=== PATIENT | female | born 1970 | race Caucasian/White ===

== ENCOUNTER 2022-10-03 06:27 | Observation (INO) | payer BC ==
[2022-10-03] MEDS ORDERED: SODIUM CHLORIDE 0.9% 1,000 ML IV STA (06:44)
[2022-10-03] MEDS ORDERED: MORPHINE SULFATE 4 MG/ML SYRINGE IV STA (06:44)
[2022-10-03] MEDS ORDERED: ONDANSETRON 4 MG/2 ML VIAL IVP STA (06:44)
[2022-10-03 07:17] LABS: Basophils % (A) 0 %; Eosinophils # (A) 0.2 k/uL (0-0.7); Eosinophils % (A) 2 %; HCT 44.1 % (34.0-46.0); HGB 14.5 gm/dL (11.4-16.0); Lymphocytes % (A) 8 %; MCH 31.4 pg (25.0-35.0); MCHC 32.8 g/dL (31.0-37.0); MCV 95.7 fL (80.0-100.0); Mean Platelet Volume 7.6; Monocytes # (A) 0.4 k/uL (0-1.0); Monocytes % (A) 3 %; Neutrophils # (A) 11.4 k/uL (1.3-7.7); Neutrophils % (A) 87 %; Platelet Count 343 k/uL (150-450); RBC 4.61 m/uL (3.80-5.40); RDW 12.3 % (11.5-15.5)
[2022-10-03 07:29] LABS: ALT 47 U/L (4-34); AST 30 U/L (14-36); African American GFR (CKD) >90 (>60 ml/min/1.73 sqM); Albumin 4.1 g/dL (3.5-5.0); Alkaline Phosphatase 97 U/L (38-126); Amylase 48 U/L (30-110); Anion Gap 9 mmol/L; Blood Urea Nitrogen 8 mg/dL (7-17); Carbon Dioxide 28 mmol/L (22-30); Chloride 103 mmol/L (98-107); Glucose 138 mg/dL (74-99); Lipase 42 U/L (23-300); Non-African American GFR(CKD) >90 (>60 ml/min/1.73 sqM); Potassium 4.3 mmol/L (3.5-5.1); Sodium 140 mmol/L (137-145); Total Bilirubin 0.8 mg/dL (0.2-1.3); Total Protein 6.7 g/dL (6.3-8.2)
[2022-10-03 08:08] LABS: Appearance,Urine Clear (Clear); Bacteria,Urine Rare /hpf; Bilirubin,Urine Negative (Negative); Blood,Urine Negative (Negative); Color,Urine Yellow; Glucose,Urine (UA) Negative (Negative); Ketones,Urine 1+ (Negative); Leukocyte Esterase,Urine Negative (Negative); Mucus,Urine Rare /hpf; Nitrite,Urine Negative (Negative); Protein,Urine 1+ (Negative); RBC,Urine 5 /hpf (0-5); Specific Gravity,Urine 1.029 (1.001-1.035); Squamous Epithelial Cell,Urine 3 /hpf (0-4); Urobilinogen,Urine <2.0 mg/dL (<2.0); WBC,Urine 1 /hpf (0-5)
--- NOTE | 2022-10-03 08:15 | ED ---
General Adult HPI - General Chief complaint: Abdominal Pain Stated complaint: abd pain Time Seen by Provider: 10/03/22 06:35 Source: patient, RN notes reviewed Mode of arrival: ambulatory Limitations: no limitations - History of Present Illness Initial comments: 51-year-old female with a past medical history of hypertension presents to the emergency room for abdominal pain. Patient reports this started yesterday. Patient states it is in her mid upper abdomen and also her right lower quadrant. Patient reports that the pain has been constant. She has had some nausea and vomiting from this. She denies any diarrhea. Patient did take Motrin last night without relief. Patient denies any previous abdominal surgeries.Patient has no other complaints at this time including shortness of breath, chest pain, headache, or visual changes. - Related Data Home Medications Medication Instructions Recorded Confirmed Losartan [Cozaar] 50 mg PO DAILY 10/03/22 10/03/22 Allergies Allergy/AdvReac Type Severity Reaction Status Date / Time diphenhydramine AdvReac See comment Verified 10/03/22 09:24 [From Benadryl] Penicillins AdvReac See comment Verified 10/03/22 09:24 Review of Systems ROS Statement: Those systems with pertinent positive or pertinent negative responses have been documented in the HPI. ROS Other: All systems not noted in ROS Statement are negative. Past Medical History Past Medical History: Hypertension History of Any Multi-Drug Resistant Organisms: None Reported Past Surgical History: No Surgical Hx Reported Past Psychological History: No Psychological Hx Reported Smoking Status: Never smoker Past Alcohol Use History: Daily Past Drug Use History: None Reported General Exam Limitations: no limitations General appearance: alert, in no apparent distress Head exam: Present: atraumatic Eye exam: Present: normal appearance, PERRL, EOMI. Absent: scleral icterus, conjunctival injection ENT exam: Present: normal exam, mucous membranes moist Neck exam: Present: normal inspection, full ROM Respiratory exam: Present: normal lung sounds bilaterally. Absent: respiratory distress, wheezes Cardiovascular Exam: Present: regular rate, normal rhythm GI/Abdominal exam: Present: soft, tenderness (Epigastric and right lower quadrant tenderness, negative Chirinos sign. Negative Rovsing sign.), normal bowel sounds. Absent: distended, guarding, rebound, rigid Neurological exam: Present: alert Course Vital Signs 10/03/22 06:30 Temperature 98.5 F Pulse Rate 91 Respiratory 16 Rate Blood Pressure 120/69 O2 Sat by Pulse 95 Oximetry Medical Decision Making - Medical Decision Making Vitals stable patient afebrile abdominal tenderness noted. CBC showed a white count of 13 with a left shift. CMP is unremarkable. Urinalysis is negative for infection. I read and reviewed the CT. CT abdomen and pelvis does show acute appendicitis with appendicolith. No evidence of perforation or abscess. Patient has severe penicillin ALLERGY, will be started on Levaquin and Flagyl. Patient will be admitted to Dr. Murray. Discussed with Dr Boyer. - Lab Data Result diagrams: 10/03/22 07:07 10/03/22 07:07 Lab Results 10/03/22 10/03/22 10/03/22 Range/Units 07:07 07:07 07:07 WBC 13.0 H (3.8-10.6) k/uL RBC 4.61 (3.80-5.40) m/uL Hgb 14.5 (11.4-16.0) gm/dL Hct 44.1 (34.0-46.0) % MCV 95.7 (80.0-100.0) fL MCH 31.4 (25.0-35.0) pg MCHC 32.8 (31.0-37.0) g/dL RDW 12.3 (11.5-15.5) % Plt Count 343 (150-450) k/uL MPV 7.6 Neutrophils % 87 % Lymphocytes % 8 % Monocytes % 3 % Eosinophils % 2 % Basophils % 0 % Neutrophils # 11.4 H (1.3-7.7) k/uL Lymphocytes # 1.0 (1.0-4.8) k/uL Monocytes # 0.4 (0-1.0) k/uL Eosinophils # 0.2 (0-0.7) k/uL Basophils # 0.0 (0-0.2) k/uL Sodium 140 (137-145) mmol/L Potassium 4.3 (3.5-5.1) mmol/L Chloride 103 (98-107) mmol/L Carbon Dioxide 28 (22-30) mmol/L Anion Gap 9 mmol/L BUN 8 (7-17) mg/dL Creatinine 0.67 (0.52-1.04) mg/dL Est GFR (CKD-EPI)AfAm >90 (>60 ml/min/1.73 sqM) Est GFR (CKD-EPI)NonAf >90 (>60 ml/min/1.73 sqM) Glucose 138 H (74-99) mg/dL Plasma Lactic Acid Zen 1.3 (0.7-2.0) mmol/L Calcium 9.0 (8.4-10.2) mg/dL Total Bilirubin 0.8 (0.2-1.3) mg/dL AST 30 (14-36) U/L ALT 47 H (4-34) U/L Alkaline Phosphatase 97 (38-126) U/L Total Protein 6.7 (6.3-8.2) g/dL Albumin 4.1 (3.5-5.0) g/dL Amylase 48 (30-110) U/L Lipase 42 (23-300) U/L Urine Color Urine Appearance (Clear) Urine pH (5.0-8.0) Ur Specific [place] (1.001-1.035) Urine Protein (Negative) Urine Glucose (UA) (Negative) Urine Ketones (Negative) Urine Blood (Negative) Urine Nitrite (Negative) Urine Bilirubin (Negative) Urine Urobilinogen (<2.0) mg/dL Ur Leukocyte Esterase (Negative) Urine RBC (0-5) /hpf Urine WBC (0-5) /hpf Ur Squamous Epith Cells (0-4) /hpf Urine Bacteria (None) /hpf Urine Mucus (None) /hpf 10/03/22 Range/Units 07:30 WBC (3.8-10.6) k/uL RBC (3.80-5.40) m/uL Hgb (11.4-16.0) gm/dL Hct (34.0-46.0) % MCV (80.0-100.0) fL MCH (25.0-35.0) pg MCHC (31.0-37.0) g/dL RDW (11.5-15.5) % Plt Count (150-450) k/uL MPV Neutrophils % % Lymphocytes % % Monocytes % % Eosinophils % % Basophils % % Neutrophils # (1.3-7.7) k/uL Lymphocytes # (1.0-4.8) k/uL Monocytes # (0-1.0) k/uL Eosinophils # (0-0.7) k/uL Basophils # (0-0.2) k/uL Sodium (137-145) mmol/L Potassium (3.5-5.1) mmol/L Chloride (98-107) mmol/L Carbon Dioxide (22-30) mmol/L Anion Gap mmol/L BUN (7-17) mg/dL Creatinine (0.52-1.04) mg/dL Est GFR (CKD-EPI)AfAm (>60 ml/min/1.73 sqM) Est GFR (CKD-EPI)NonAf (>60 ml/min/1.73 sqM) Glucose (74-99) mg/dL Plasma Lactic Acid Zen (0.7-2.0) mmol/L Calcium (8.4-10.2) mg/dL Total Bilirubin (0.2-1.3) mg/dL AST (14-36) U/L ALT (4-34) U/L Alkaline Phosphatase (38-126) U/L Total Protein (6.3-8.2) g/dL Albumin (3.5-5.0) g/dL Amylase (30-110) U/L Lipase (23-300) U/L Urine Color Yellow Urine Appearance Clear (Clear) Urine pH 8.0 (5.0-8.0) Ur Specific [place] 1.029 (1.001-1.035) Urine Protein 1+ H (Negative) Urine Glucose (UA) Negative (Negative) Urine Ketones 1+ H (Negative) Urine Blood Negative (Negative) Urine Nitrite Negative (Negative) Urine Bilirubin Negative (Negative) Urine Urobilinogen <2.0 (<2.0) mg/dL Ur Leukocyte Esterase Negative (Negative) Urine RBC 5 (0-5) /hpf Urine WBC 1 (0-5) /hpf Ur Squamous Epith Cells 3 (0-4) /hpf Urine Bacteria Rare H (None) /hpf Urine Mucus Rare H (None) /hpf Disposition Clinical Impression: Acute appendicitis, Leukocytosis Disposition: ADMITTED IP TO THIS HOSP Is patient prescribed a controlled substance at d/c from ED?: No Time of Disposition: 09:00
--- NOTE | 2022-10-03 08:38 | CT ---
EXAMINATION TYPE: CT abdomen pelvis w con DATE OF EXAM: 10/03/2022 COMPARISON: None HISTORY: Pain, more on the right, nausea and vomiting CT DLP: 1797.1 mGycm CONTRAST: CT scan of the abdomen and pelvis is performed without Oral Contrast and with IV Contrast, patient in jected with 100 mL of Isovue 300. FINDINGS: LUNG BASES-: No visible nodule. No infiltrate. LIVER/GB: No calcified gallstones. No space occupying hepatic lesion. Biliary tree is of normal ca liber. PANCREAS: No inflammation. No distinct mass. SPLEEN: No splenic enlargement. No lesion seen. ADRENALS: No nodule. No thickening. KIDNEYS/BLADDER: No hydronephrosis. No nephrolithiasis. Simple cyst left kidney. Urinary bladder g rossly unremarkable. BOWEL: Dilated appendix at 1 cm with appendicolith, wall thickening and periappendiceal inflammatory change compatible with acute appendicitis. No evidence for perforation or abscess at this time. Mild small bowel ileus. Small amount of free fluid within the cul-de-sac. Scattered colonic diverticula. GENITAL ORGANS: No gross abnormality. LYMPH NODES: No greater than 1cm abdominal or pelvic lymph nodes are appreciated. AORTA: No significant abnormality. OSSEOUS STRUCTURES: No significant abnormality is seen. OTHER: No significant additional abnormality is seen. IMPRESSION: 1. Findings compatible with acute appendicitis.
[2022-10-03] MEDS ORDERED: LEVOFLOXACIN 500MG-D5W PMX 500 MG in DEXTROSE/WATER 1 100ML.BAG IVPB STA (08:47)
[2022-10-03] MEDS ORDERED: metroNIDAZOLE-NS PMX 500 MG in SALINE 1 100ML.BAG IVPB STA (08:48)
[2022-10-03] MEDS ORDERED: NALOXONE 0.4 MG/ML 1 ML VIAL IV PRN (09:00)
[2022-10-03] MEDS: SODIUM CHLORIDE 0.9% 1,000 ML IV SCH ×2 (10:04→18:10)
[2022-10-03] MEDS ORDERED: diphenhydrAMINE 50 MG/ML 1 ML VIAL IVP STA (11:01)
[2022-10-03] MEDS ORDERED: ACETAMINOPHEN IV (For NPO) 1,000 MG in EMPTY BAG 1 BAG IVPB STA (11:02)
[2022-10-03] MEDS ORDERED: MORPHINE SULFATE 4 MG/ML SYRINGE IVP PRN (11:02)
[2022-10-03] MEDS ORDERED: IV FLUID CONTINUATION 1,000 ML IV ONE (13:45)
[2022-10-03] MEDS ORDERED: HEPARIN SODIUM,PORCINE 5,000 UNIT/ML 1 ML VIAL SQ ONE (13:45)
--- NOTE | 2022-10-03 13:47 | P.GSHP ---
History of Present Illness H&P Date: 10/03/22 51-year-old female presented to the emergency department with complaints of abdominal pain that started yesterday afternoon. She states that the pain was mostly in the right lower quadrant and she initially thought it was gas pain. She tried ibuprofen and hot shower that was unsuccessful. She states that the pain worsened overnight and she presented to the emergency department. She complains of mild nausea and denies any vomiting episodes. She denies any changes in bowel movements. On workup, CT of the abdomen and pelvis was performed and patient was found to have acute appendicitis. Leukocytosis was noted on laboratory work. During her ER visit she is noted to have a mild febrile episode of 100.6. She was started on IV antibiotics with levofloxacin and Flagyl. Patient did have some hives and itching with the levofloxacin service was discontinued. Patient did tolerate Flagyl. - Review of Systems All systems: negative Past Medical History Past Medical History: Hypertension History of Any Multi-Drug Resistant Organisms: None Reported Past Surgical History: No Surgical Hx Reported Past Psychological History: No Psychological Hx Reported Smoking Status: Never smoker Past Alcohol Use History: Daily Past Drug Use History: None Reported Medications and Allergies Home Medications Medication Instructions Recorded Confirmed Type Losartan [Cozaar] 50 mg PO DAILY 10/03/22 10/03/22 History Allergies Allergy/AdvReac Type Severity Reaction Status Date / Time levofloxacin Allergy Rash/Hives Verified 10/03/22 12:21 diphenhydramine AdvReac See comment Verified 10/03/22 09:24 [From Benadryl] Penicillins AdvReac See comment Verified 10/03/22 09:24 Surgical - Exam Osteopathic Statement: *. No significant issues noted on an osteopathic structural exam other than those noted in the History and Physical/Consult. Vital Signs Temp Pulse Resp BP Pulse Ox 98.5 F 91 16 120/69 95 10/03/22 06:30 10/03/22 06:30 10/03/22 06:30 10/03/22 06:30 10/03/22 06:30 - General no distress - Eyes normal ocular movement - ENT no hearing loss - Neck trachea midline - Respiratory normal respiratory effort - Abdomen Soft, tender to palpation in the right lower quadrant, nondistended, no rebound, no guarding - Psychiatric oriented to time, oriented to person, oriented to place Results - Labs 10/03/22 07:07 10/03/22 07:07 Abnormal Lab Results - Last 24 Hours (Table) 10/03/22 10/03/22 10/03/22 Range/Units 07:07 07:07 07:30 WBC 13.0 H (3.8-10.6) k/uL Neutrophils # 11.4 H (1.3-7.7) k/uL Glucose 138 H (74-99) mg/dL ALT 47 H (4-34) U/L Urine Protein 1+ H (Negative) Urine Ketones 1+ H (Negative) Urine Bacteria Rare H (None) /hpf Urine Mucus Rare H (None) /hpf Diabetes panel 10/03/22 Range/Units 07:07 Sodium 140 (137-145) mmol/L Potassium 4.3 (3.5-5.1) mmol/L Chloride 103 (98-107) mmol/L Carbon Dioxide 28 (22-30) mmol/L BUN 8 (7-17) mg/dL Creatinine 0.67 (0.52-1.04) mg/dL Glucose 138 H (74-99) mg/dL Calcium 9.0 (8.4-10.2) mg/dL AST 30 (14-36) U/L ALT 47 H (4-34) U/L Alkaline Phosphatase 97 (38-126) U/L Total Protein 6.7 (6.3-8.2) g/dL Albumin 4.1 (3.5-5.0) g/dL Calcium panel 10/03/22 Range/Units 07:07 Calcium 9.0 (8.4-10.2) mg/dL Albumin 4.1 (3.5-5.0) g/dL Pituitary panel 10/03/22 Range/Units 07:07 Sodium 140 (137-145) mmol/L Potassium 4.3 (3.5-5.1) mmol/L Chloride 103 (98-107) mmol/L Carbon Dioxide 28 (22-30) mmol/L BUN 8 (7-17) mg/dL Creatinine 0.67 (0.52-1.04) mg/dL Glucose 138 H (74-99) mg/dL Calcium 9.0 (8.4-10.2) mg/dL Adrenal panel 10/03/22 Range/Units 07:07 Sodium 140 (137-145) mmol/L Potassium 4.3 (3.5-5.1) mmol/L Chloride 103 (98-107) mmol/L Carbon Dioxide 28 (22-30) mmol/L BUN 8 (7-17) mg/dL Creatinine 0.67 (0.52-1.04) mg/dL Glucose 138 H (74-99) mg/dL Calcium 9.0 (8.4-10.2) mg/dL Total Bilirubin 0.8 (0.2-1.3) mg/dL AST 30 (14-36) U/L ALT 47 H (4-34) U/L Alkaline Phosphatase 97 (38-126) U/L Total Protein 6.7 (6.3-8.2) g/dL Albumin 4.1 (3.5-5.0) g/dL Assessment and Plan Plan: 51-year-old female with acute appendicitis. Patient has been nothing by mouth and started on IV antibiotics. DVT prophylaxis was provided. Plan is for la paroscopic appendectomy, possible open. This was discussed with the patient. Risks, benefits and alternatives were provided. All questions were answered. Further recommendations to be made after procedure is completed.
[2022-10-03] MEDS ORDERED: SUCCINYLCHOLINE CHLORIDE 200 MG/10 ML VIAL IV ONE (13:48)
[2022-10-03] MEDS ORDERED: NEOSTIGMINE 1 MG/ML 10 ML VIAL ONE (13:48)
[2022-10-03] MEDS ORDERED: KETOROLAC 15 MG/ML 1 ML VIAL ONE (13:48)
[2022-10-03] MEDS ORDERED: MIDAZOLAM 2 MG/2 ML VIAL ONE (13:48)
[2022-10-03] MEDS ORDERED: LIDOCAINE 2% INJ 20 MG/ML (2 ML VIAL) ONE (13:48)
[2022-10-03] MEDS ORDERED: LIDOCAINE 4% LTA KIT (4 ML) TOPICAL ONE (13:48)
[2022-10-03] MEDS ORDERED: ROCURONIUM 10 MG/ML (5 ML VIAL) IV ONE (13:48)
[2022-10-03] MEDS ORDERED: fentaNYL (PF) 50 MCG/ML 2 ML AMP ONE (13:48)
[2022-10-03] MEDS ORDERED: GLYCOPYRROLATE 0.2 MG/ML 2 ML VIAL ONE (13:48)
[2022-10-03] MEDS ORDERED: PROPOFOL 10 MG/ML 20 ML VIAL IV ONE (13:48)
[2022-10-03] MEDS ORDERED: HEPARIN SODIUM,PORCINE/PF 5,000 UNIT/0.5 ML SYRINGE SQ ONE (13:48)
[2022-10-03] MEDS ORDERED: BUPIVACAINE (PF) 0.25% 30 ML VIAL SQ ONE (14:14)
[2022-10-03] MEDS ORDERED: LACTATED RINGERS 1,000 ML IV ONE (14:51)
[2022-10-03] MEDS ORDERED: ONDANSETRON 4 MG/2 ML VIAL IVP ONE (14:55)
[2022-10-03] MEDS ORDERED: HYDROcodone/APAP 5-325MG 1 EACH TAB PO PRN (15:13)
--- NOTE | 2022-10-03 15:13 | P.OP ---
Date of Procedure: 10/03/22 Preoperative Diagnosis: Acute appendicitis Postoperative Diagnosis: Acute appendicitis Procedure(s) Performed: Laparoscopic appendectomy Anesthesia: THUAN Surgeon: Blaire Murray Pathology: other (Appendix) Condition: stable Disposition: floor Indications for Procedure: 50-year-old female presented to the emergency department with complaints of abdominal pain. On workup, she was found to have acute appendicitis. Secondary to this, plan is for laparoscopic appendectomy. Risks, benefits and alternat trang were provided to the patient. Operative Findings: Significantly inflamed appendix with purulent peritonitis localized right lower quadrant Description of Procedure: The patient was brought into the operating suite and placed in supine position on the operating table. Sedation was provided by anesthesia and the patient underwent endotracheal intubation. She was then prepped and draped in regular sterile fashion. A super umbilical incision was made and dissection was carried to the fascia. The fascia was incised and a 12 mm trocar was placed. Pneumoperitoneum was achieved. 2 additional 5 mm ports were placed. First was placed in the suprapubic region and the second was placed in left lower quadrant. Attention was then turned towards the cecum and as it was peeled from the abdominal wall, significant amount of purulent material was noted. The tenia was identified and followed appendix that appeared significantly inflamed with purulent exudate surrounding the base of the appendix. The appendix was then dissected free from surrounding tissue. A window was created between the appendix and mesoappendix and the mesoappendix was dissected free using LigaSure device. At this point, stapler device was fired across the base of the appendix and placed in an Endo Catch bag and removed from the abdomen. Copious muss irrigation was used in the right lower quadrant secondary to the purulent material. This was then cleared. Staple line was examined with no evidence of bleeding. At this point, the 12 mm trocar site was closed under direct visualization using an 0 Vicryl suture and John-Rodrigo device. Other ports were removed from the abdomen after pneumoperitoneum was released. All incision sites were closed with 4-0 Vicryl subcuticular suture. Sterile dressing was applied. The patient was awakened in the operating suite and taken to postanesthesia care unit in stable condition.
[2022-10-03] MEDS: CLINDAMYCIN 600 MG in DEXTROSE 5% IN WATER 50 ML IVPB SCH ×2 (16:12)
[2022-10-03] MEDS: HEPARIN SODIUM,PORCINE/PF 5,000 UNIT/0.5 ML SYRINGE SQ SCH (16:12)
[2022-10-03] MEDS: KETOROLAC 15 MG/ML 1 ML VIAL IVP SCH (17:56)
[2022-10-03] MEDS ORDERED: ONDANSETRON 4 MG/2 ML VIAL IVP PRN (18:06)
[2022-10-03] MEDS: metroNIDAZOLE-NS PMX 500 MG in SALINE 1 100ML.BAG IVPB SCH (19:58)
[2022-10-04] MEDS: CLINDAMYCIN 600 MG in DEXTROSE 5% IN WATER 50 ML IVPB SCH ×6 (01:01→16:44)
[2022-10-04] MEDS: HEPARIN SODIUM,PORCINE/PF 5,000 UNIT/0.5 ML SYRINGE SQ SCH ×3 (01:01→16:32)
[2022-10-04] MEDS: KETOROLAC 15 MG/ML 1 ML VIAL IVP SCH ×4 (01:01→18:11)
[2022-10-04] MEDS ORDERED: LEVOFLOXACIN 500MG-D5W PMX 500 MG in DEXTROSE/WATER 1 100ML.BAG IVPB SCH (09:00)
[2022-10-04] MEDS: SODIUM CHLORIDE 0.9% 1,000 ML IV SCH ×3 (09:16→17:00)
[2022-10-04] MEDS: metroNIDAZOLE-NS PMX 500 MG in SALINE 1 100ML.BAG IVPB SCH ×3 (09:16→19:40)
[2022-10-04 15:54] LABS: ALT 29 U/L (4-34); AST 20 U/L (14-36); African American GFR (CKD) >90 (>60 ml/min/1.73 sqM); Albumin 3.1 g/dL (3.5-5.0); Albumin/Globulin Ratio 1.3; Alkaline Phosphatase 82 U/L (38-126); Anion Gap 8 mmol/L; Blood Urea Nitrogen 11 mg/dL (7-17); Carbon Dioxide 23 mmol/L (22-30); Chloride 103 mmol/L (98-107); Globulin 2.3 g/dL; Glucose 105 mg/dL (74-99); Non-African American GFR(CKD) >90 (>60 ml/min/1.73 sqM); Potassium 4.1 mmol/L (3.5-5.1); Sodium 134 mmol/L (137-145); Total Bilirubin 0.7 mg/dL (0.2-1.3); Total Protein 5.4 g/dL (6.3-8.2)
[2022-10-04 15:57] LABS: Basophils % (A) 0 %; Eosinophils % (A) 0 %; HGB 11.8 gm/dL (11.4-16.0); Hypochromasia Slight; Lymphocytes # (A) 1.4 k/uL (1.0-4.8); Lymphocytes % (A) 9 %; MCH 32.1 pg (25.0-35.0); MCHC 32.8 g/dL (31.0-37.0); MCV 97.9 fL (80.0-100.0); Mean Platelet Volume 7.9; Monocytes # (A) 0.6 k/uL (0-1.0); Monocytes % (A) 4 %; Neutrophils # (A) 13.6 k/uL (1.3-7.7); Neutrophils % (A) 86 %; Platelet Count 262 k/uL (150-450); RBC 3.67 m/uL (3.80-5.40); RDW 12.3 % (11.5-15.5); WBC 15.7 k/uL (3.8-10.6)
[2022-10-04 20:44] VITALS: PULSE 85
[2022-10-05] MEDS: KETOROLAC 15 MG/ML 1 ML VIAL IVP SCH ×2 (00:06→06:39)
[2022-10-05] MEDS: CLINDAMYCIN 600 MG in DEXTROSE 5% IN WATER 50 ML IVPB SCH ×4 (00:06→08:15)
[2022-10-05] MEDS: SODIUM CHLORIDE 0.9% 1,000 ML IV SCH ×2 (00:06→06:49)
[2022-10-05] MEDS: HEPARIN SODIUM,PORCINE/PF 5,000 UNIT/0.5 ML SYRINGE SQ SCH ×2 (00:06→08:16)
[2022-10-05] MEDS: metroNIDAZOLE-NS PMX 500 MG in SALINE 1 100ML.BAG IVPB SCH (03:39)
[2022-10-05 04:00] VITALS: RESP 18
--- NOTE | 2022-10-05 09:36 | P.PN ---
Subjective Progress Note Date: 10/04/22 Patient seen and examined at bedside. Feeling much better. Antibiotics were adjusted based on the patient's ALLERGIES to quinolones and penicillins. Denies nausea or vomiting. States she is hungry. Pain well-controlled. Objective - Vital Signs Vital signs: Vital Signs Temp 99.1 F 10/04/22 14:10 Pulse 84 10/04/22 14:10 Resp 18 10/04/22 14:10 BP 115/77 10/04/22 14:10 Pulse Ox 95 10/04/22 14:10 FiO2 Intake & Output 10/03/22 10/04/22 10/04/22 18:59 06:59 18:59 Intake Total 700 480 Output Total 7 Balance 693 480 Weight 104.326 kg Intake: IV 700 Oral 480 Output: Estimated Blood Loss 7 Other: Voiding Method Toilet Toilet # Voids 1 1 2 - Constitutional General appearance: Present: cooperative - Respiratory Details: No difficulty with respiration - Gastrointestinal Gastrointestinal Comment(s): Soft, appropriate incisional tenderness, nondistended, no rebound, no guarding, incision sites are clean, dry and intact - Psychiatric Psychiatric: Present: A&O x's 3 - Labs CBC & Chem 7: 10/04/22 10:12 10/04/22 10:12 Labs: Microbiology - Last 24 Hours (Table) 10/03/22 08:57 Blood Culture - Preliminary Blood No Growth after 24 hours 10/03/22 09:14 Blood Culture - Preliminary Blood No Growth after 24 hours Assessment and Plan Plan: Postoperative day #1, laparoscopic appendectomy with purulent peritonitis. Based on increase in leukocytosis and concern for appropriate microbial coverage secondary to patient's ALLERGIES, we will continue admission with IV antibiotics. Patient's diet to be advanced. Likely discharge in 24 hours.
--- NOTE | 2022-10-05 09:40 | P.DS ---
Providers Date of admission: 10/03/22 09:08 Attending physician: Blaire Murray DO Primary care physician: Luis M Zhu MD Hospital Course: 51-year-old female presented to the emergency department with complaints of abdominal pain. She was diagnosed with acute appendicitis. She was taken for laparoscopic appendectomy. On surgical evaluation, patient was noted to have purulent peritonitis. She was also started on IV antibiotics in the preoperative period. She was noted to have an ALLERGIC reaction to levofloxacin. She already has a baseline ALLERGY to penicillins and there is concern for crossover reaction to cephalosporin. She was continued on Flagyl and Cleocin and appeared to tolerate this regimen. Postoperatively, she was sent to the medical surgical floor and did improve. Pain was well-controlled. She was maintained on IV antibiotics due to concern of appropriate microbial coverage. Her diet was advanced. She had no postoperative febrile episodes and leukocytosis was noted. Patient is requesting discharge and at this point, the re are no overt signs of infection. Patient was informed of risk of abscess formation. She was instructed to continue with oral antibiotics as an outpatient. Patient to follow up in 2 weeks. Procedures: Laparoscopic appendectomy Patient Condition at Discharge: Good Plan - Discharge Summary New Discharge Prescriptions: New HYDROcodone/APAP 5-325MG [[place] 5-325] 1 tab PO Q6HR PRN 3 Days #12 tab PRN Reason: Pain Clindamycin [Cleocin] 450 mg PO Q6H 5 Days #20 cap metroNIDAZOLE [Flagyl] 500 mg PO TID #15 tab Continue Losartan [Cozaar] 50 mg PO DAILY Discharge Medication List Losartan [Cozaar] 50 mg PO DAILY 10/03/22 [History] Clindamycin [Cleocin] 450 mg PO Q6H 5 Days #20 cap 10/04/22 [Rx] HYDROcodone/APAP 5-325MG [[place] 5-325] 1 tab PO Q6HR PRN 3 Days #12 tab 10/04/22 [Rx] metroNIDAZOLE [Flagyl] 500 mg PO TID #15 tab 10/04/22 [Rx] Follow up Appointment(s)/Referral(s): Luis M Zhu MD [Primary Care Provider] - 1-2 days Blaire Murray DO [Doctor of Osteopathic Medicine] - 2 Weeks Activity/Diet/Wound Care/Special Instructions: No lifting greater than 5 pounds for 1 week Okay to shower, do not scrub on incision Stay on a soft diet If taking narcotic pain medication, take stool softener Discharge Disposition: HOME SELF-CARE
[2022-10-05 09:54] VITALS: BP 138/78; TEMP 98.7
[2022-10-05 11:12] LABS: Basophils # (A) 0.03 X 10*3/uL (0.00-0.10); Basophils % (A) 0.2 %; Eosinophils # (A) 0.15 X 10*3/uL (0.04-0.35); Eosinophils % (A) 1.2 %; HCT 39.4 % (37.2-46.3); HGB 12.1 g/dL (12.0-15.0); Immature Grans, Automated 0.3 %; Lymphocytes # (A) 1.09 X 10*3/uL (0.90-5.00); Lymphocytes % (A) 8.7 %; MCH 30.9 pg (27.0-32.0); MCHC 30.7 g/dL (32.0-37.0); MCV 100.8 fL (80.0-97.0); Mean Platelet Volume 10.5 fL (9.5-12.2); Monocytes # (A) 0.73 X 10*3/uL (0.20-1.00); Monocytes % (A) 5.8 %; NRBC Per 100 WBC 0 /100 WBCS (0.0-0.0); Neutrophils # (A) 10.49 X 10*3/uL (1.80-7.70); Neutrophils % (A) 83.8 %; Platelet Count 243 X 10*3/uL (140-440); RBC 3.91 X 10*6/uL (4.10-5.20); RDW 13.3 % (11.5-14.5); WBC 12.53 X 10*3/uL (4.50-10.00)
== END 2022-10-05 10:59 | disposition home or self-care (01) ==
LOC: EC 06:27 → 6NMEDSUR 09:08
PROVIDERS: ADMIT Surgery; ATTEND Surgery
DX: K35.30 Acute appendicitis with localized peritonitis, without perforation or gangrene (principal); I10 Essential (primary) hypertension; Z79.899 Other long term (current) drug therapy; Z88.0 Allergy status to penicillin; Z88.1 Allergy status to other antibiotic agents
CPT/HCPCS: 96376; 96361; 96365; 96367; 96375; 99285; 36415; 80053 ×2; 82150; 83605; 83690; 85025 ×3; 81001; 87040; 74177; 44970; G0378 ×3; J2250; J0330; J2270; J1644 ×4; J2710; J2405; J1956; J3010; J0131; J1885 ×3; J2704; Q9967; J2001; 88304